=== PATIENT | male | born 1985 ===

== ENCOUNTER 2021-08-27 10:57 | Emergency (ER) | payer MEDICAID, OTHER ==
[~2021-08-27] VITALS: Ht 177.8 cm; Wt 72.6 kg
[2021-08-27 11:27] VITALS: BP 142/73
[2021-08-27] MEDS ORDERED: FLUORESCEIN SOD OPTH TEST STRIP OP ONE (11:30)
== END 2021-08-27 12:23 | disposition left against medical advice (07) ==
LOC: ER 10:57 → EDBD 10:57 → ER 12:23
DX: H16.213 Exposure keratoconjunctivitis, bilateral (principal)